=== PATIENT | male | born 1950 | race Caucasian/White ===

== ENCOUNTER 2025-07-14 14:17 | Outpatient (CLI) | payer OTHER, SELFPAY | END 2025-07-14 14:18 | disposition home or self-care (01) | LOC: WOUND 14:24 | PROVIDERS: Referring Provider Physician Assistant; Visit Provider Nurse Practitioner Family | DX: L02.211 Cutaneous abscess of abdominal wall (principal) | CPT/HCPCS: 11042; G0463 ==

== ENCOUNTER 2025-07-22 08:18 | Outpatient (CLI) | payer MEDICARE, OTHER, SELFPAY | END 2025-07-22 08:19 | disposition home or self-care (01) | LOC: WOUND 08:19 | PROVIDERS: Visit Provider Nurse Practitioner Family | DX: L02.211 Cutaneous abscess of abdominal wall (principal) | CPT/HCPCS: 11042 ==

== ENCOUNTER 2025-07-29 08:19 | Outpatient (CLI) | payer OTHER, SELFPAY | END 2025-07-29 08:20 | disposition home or self-care (01) | LOC: WOUND 08:19 | PROVIDERS: Visit Provider Nurse Practitioner Family | DX: L02.211 Cutaneous abscess of abdominal wall (principal) | CPT/HCPCS: 11042 ==

== ENCOUNTER 2025-08-05 08:20 | Outpatient (CLI) | payer OTHER, SELFPAY | END 2025-08-05 08:21 | disposition home or self-care (01) | LOC: WOUND 08:20 | PROVIDERS: Visit Provider Nurse Practitioner Family | DX: L02.211 Cutaneous abscess of abdominal wall (principal) | CPT/HCPCS: 11042 ==

== ENCOUNTER 2025-08-12 08:16 | Outpatient (CLI) | payer OTHER, SELFPAY | END 2025-08-12 08:17 | disposition home or self-care (01) | LOC: WOUND 08:16 | PROVIDERS: Visit Provider Nurse Practitioner Family | DX: L02.211 Cutaneous abscess of abdominal wall (principal) | CPT/HCPCS: G0463 ==

== ENCOUNTER 2025-08-19 08:13 | Outpatient (CLI) | payer OTHER, SELFPAY | END 2025-08-19 08:14 | disposition home or self-care (01) | LOC: WOUND 08:13 | PROVIDERS: Visit Provider Nurse Practitioner Family | DX: L02.211 Cutaneous abscess of abdominal wall (principal) | CPT/HCPCS: 11042 ==

== ENCOUNTER 2025-08-26 08:23 | Outpatient (CLI) | payer OTHER, SELFPAY | END 2025-08-26 08:24 | disposition home or self-care (01) | LOC: WOUND 08:23 | PROVIDERS: Visit Provider Nurse Practitioner Family | DX: L02.211 Cutaneous abscess of abdominal wall (principal) | CPT/HCPCS: G0463 ==

== ENCOUNTER 2025-09-02 08:15 | Outpatient (CLI) | payer OTHER, SELFPAY | END 2025-09-02 08:16 | disposition home or self-care (01) | LOC: WOUND 08:15 | PROVIDERS: Visit Provider Nurse Practitioner Family | DX: L02.211 Cutaneous abscess of abdominal wall (principal) | CPT/HCPCS: G0463 ==